=== PATIENT | male | born 1985 | race Caucasian/White ===

== ENCOUNTER 2019-11-04 09:38 | Emergency (ER) | payer SELFPAY ==
[~2019-11-04] VITALS: Ht 180.3 cm; Wt 54.4 kg
[2019-11-04 09:45] VITALS: BP 130/61
[2019-11-04 10:11] VITALS: BP 130/61
== END 2019-11-04 10:11 | disposition home or self-care (01) ==
LOC: MED 09:38
DX: R09.81 Nasal congestion (principal); R09.89 Other specified symptoms and signs involving the circulatory and respiratory systems
CPT/HCPCS: 99282